=== PATIENT | female | born 1995 | race Asian ===

== ENCOUNTER 2017-10-26 10:35 | Emergency (ER) | payer MEDICAID ==
[~2017-10-26] VITALS: Ht 157.5 cm; Wt 51.3 kg
[2017-10-26 10:42] VITALS: BP_SYST 109
--- NOTE | 2017-10-26 10:45 | NUR ---
Ambulatory to bed 3
--- NOTE | 2017-10-26 11:30 | NUR ---
Dr. Salazar at bedside for evaluation
[2017-10-26 11:50] LABS: BILIRUBIN,URINE 1+ (NEGATIVE); CLARITY/URINE CLEAR (CLEAR); COLOR,URINE YELLOW (YELLOW); GLUCOSE,URINE NEGATIVE (NEGATIVE); KETONES,URINE TRACE (NEGATIVE); LEUKOCYTE ESTERASE ,URINE 1+ (NEGATIVE); NITRITE, URINE NEGATIVE (NEGATIVE); PH,URINE 5.5 (5.0-8.0); PROTEIN URINE NEGATIVE (NEGATIVE); UROBILINOGEN,URINE 0.2 (0.2-1.0)
--- NOTE | 2017-10-26 11:50 | NUR ---
Lab at bedside
[2017-10-26 11:52] LABS: BLOOD, URINE TRACE (NEGATIVE)
[2017-10-26 12:02] LABS: BASOPHILS # (AUTO) 0.1 K/uL (0.0-0.2); BASOPHILS % (AUTO) 0.6 % (0.0-2.0); EOSINOPHILS # (AUTO) 0.1 K/uL (0.0-0.4); HEMATOCRIT 42.4 % (36-48); HEMOGLOBIN 13.9 g/dL (12.0-16.0); LYMPHOCYTES # (AUTO) 1.6 K/uL (1.0-5.5); LYMPHOCYTES % (AUTO) 18.3 % (20.5-51.5); MEAN CORPUSCULAR HEMOGLOBIN 29 pg (27-31); MEAN CORPUSCULAR HGB CONC 33 % (32-36); MEAN CORPUSCULAR VOLUME 90 fL (79.0-98.0); MONOCYTES # (AUTO) 0.6 K/uL (0.0-1.0); MONOCYTES % (AUTO) 6.9 % (1.7-9.3); NEUTROPHILS # (AUTO) 6.4 K/uL (1.8-7.7); NEUTROPHILS % (AUTO) 73.2 % (40.0-70.0); PLATELET COUNT (AUTO) 321 K/uL (130-430); RED BLOOD CELL COUNT(AUTO) 4.73 MIL/uL (4.2-6.2); RED CELL DISTRIBUTION WIDTH 12.3 % (9.0-15.0); WHITE BLOOD COUNT (AUTO) 8.8 K/uL (4.5-11.0)
[2017-10-26 12:10] LABS: BACTERIA,URINE FEW /HPF (None Seen)
[2017-10-26 12:11] LABS: MUCUS,URINE 3+ /LPF (None Seen)
[2017-10-26 12:24] LABS: CALCIUM 9.7 mg/dL (8.4-11.0); CREATININE 0.58 mg/dL (0.55-1.30)
[2017-10-26 12:27] LABS: ALBUMIN 3.9 g/dL (3.4-4.8); TOTAL BILIRUBIN 0.4 mg/dL (0.0-1.0)
[2017-10-26 12:37] VITALS: BP_SYST 112
--- NOTE | 2017-10-26 12:37 | NUR ---
Patient given written and verbal discharge instructions and verbalizes understanding. ER MD discussed with patient the results and treatment provided. Patient in stable condition. ID arm band removed. Rx of macrobid, codiene/promethazine given. Patient educated on pain management and to follow up with PMD. Pain Scale 2/10. Opportunity for questions provided and answered.
== END 2017-10-26 12:37 | disposition home or self-care (01) ==
LOC: SED 10:35
DX: J20.8 Acute bronchitis due to other specified organisms (principal); B97.89 Other viral agents as the cause of diseases classified elsewhere
CPT/HCPCS: 36415; 71046-TC; 80053; 81000-TC; 83605; 85025; 86710; 87086; 99285

== ENCOUNTER 2019-11-07 16:16 | Emergency (ER) | payer MEDICAID ==
[~2019-11-07] VITALS: Ht 160 cm; Wt 49.9 kg
[2019-11-07 16:42] VITALS: BP_SYST 96
--- NOTE | 2019-11-07 16:50 | NUR ---
Patient triaged and placed in waiting room. VSS and patient appears in no acute distress at this time. Accompanied by mother, awaiting available bed, and MD notified of need for MSE.
--- NOTE | 2019-11-07 17:25 | NUR ---
Patient to ER bed 6 to gown for evaluation. Side rails up. Report given to Dayanara WHITE.
--- NOTE | 2019-11-07 17:30 | NUR ---
Patient presented to ER C/O cough. Patient A&Ox4, ambulatory to ER, skin pink and warm, cough present, pain 2/10, denies N/V/D. Patient states cough, chest tightness, and throat pain x4 days, self medicated with dayquil today.
--- NOTE | 2019-11-07 18:00 | NUR ---
ER Dr. Darby at bedside examining patient.
--- NOTE | 2019-11-07 18:29 | NUR ---
Patient given written and verbal discharge instructions and verbalizes understanding. ER Dr. Darby discussed with patient the results and treatment provided. Patient in stable condition. ID arm band removed. Rx of Tessalon Perles and Motrin given. Patient educated on pain management and to follow up with PMD. Pain Scale 0/10. Opportunity for questions provided and answered. Medication side effect fact sheet provided.
--- NOTE | 2019-11-07 18:30 | NUR ---
Note edone in EDM - 11/07/19 at 1915 by [email or web address] Patient presented to ER C/O cough. Patient A&Ox4, ambulatory to ER, skin pink and warm, cough present, pain 2/, denies N/V/D. Patient states cough, chest tightness, and throat pain x4 days, self medicated with dayquil today.
[2019-11-07 18:31] VITALS: BP_SYST 100
== END 2019-11-07 18:29 | disposition home or self-care (01) ==
LOC: SED 16:16
DX: J06.9 Acute upper respiratory infection, unspecified (principal)
CPT/HCPCS: 99283